=== PATIENT | male | born 1970 | race Caucasian/White ===

== ENCOUNTER 2019-08-14 10:51 | Inpatient (IN) ==
--- NOTE | 2019-08-08 09:40 | Anesthesiology Consultation ---
Date of Service August 08, 2019 Assessment & Plan Chart Review Chart Review: Acceptable Risk for Surgery, Pending: Refer to Additional Notes / Consult section (PAT testing) and Patient seen in Pre Admission Testing Consults Requested none ASA ASA2 Proposed Anesthesia Anesthesia Type: General History Surgery Operation Date: 08/14/19 07:45 Proposed Procedures p L3-S1 Decompression and Fusion with Spinal Cord Monitoring - Sid Anand, DO Height/Weight Height: 5 ft 7 in Weight: 100.2 kg Allergies Allergy/AdvReac Type Severity Reaction Status Date / Time No Known Allergies Allergy Verified 08/01/19 11:01 Medications Home Medications Medication Instructions Recorded Confirmed Last Taken cyclobenzaprine 10 mg PO TID 08/01/19 08/01/19 Unknown gabapentin 600 mg PO TID 08/01/19 08/01/19 Unknown ketorolac 10 mg PO TID PRN 08/01/19 08/01/19 Unknown losartan 25 mg PO QAM 08/01/19 08/01/19 Unknown oxycodone-acetaminophen 1 tab PO Q6H PRN 08/01/19 08/01/19 Unknown pantoprazole 40 mg PO QAM 08/01/19 08/01/19 Unknown Past Medical History Medical History Bulging disc LUMBAR Hypertension Radiculopathy of leg Exercise / Class Metabolic Activity III < 4 Walking/Shop/Light housework Past Family History Family History Mother Family history of diabetes mellitus Past Surgical History Surgical History History of discectomy LUMBAR History of endoscopic sinus surgery POLYP REMOVED [place] teeth extracted Past Anesthesia History No Hx of Anesthesia Complications and No Family Hx of Anesthesia Complications History of PONV No Hx of PONV and No Hx of Motion Sickness Social History Smoking Status: Never smoker Do You Dip or Chew Tobacco: No Hx Alcohol Use: Yes Alcohol type: beer alcohol intake frequency: holidays/special occasions only Hx Substance Use: No substance use type: does not use Physical Exam Vital Signs Last Vital Signs Temp 36.7 C 08/08/19 09:27 Pulse 85 08/08/19 09:27 Resp 18 08/08/19 09:27 BP 137/89 09/20/19 09:27 Pulse Ox 97 08/08/19 09:27 Constitutional + obese ENMT Mouth: no dentition abnormality Thyromental Distance: > or= 3.5 Finger Breadths Mallampati Class: II Neck normal visual inspection and trachea midline; neck extension not limited Respiratory normal respiratory effort Auscultation: lungs clear to auscultation bilaterally Cardiovascular Rate/Rhythm: regular rate and regular rhythm Heart Sounds: no murmur Vessels: no carotid bruit Musculoskeletal Spine: normal cervical ROM Neurologic moves all extremities Motor/Sensory: + sensory deficit (left leg radiculopathy > right leg) Psychiatric Orientation: alert and oriented x 3 Testing Electrocardiogram Date: 07/15/19 Findings: + SB @ (at 57;? IVCD)
--- NOTE | 2019-08-08 10:10 | XRay Report ---
XR chest Pre-admission PA/Lat CLINICAL HISTORY: PAT COMPARISON STUDY: 01/14/2007 FINDINGS: The bones soft tissues and hemidiaphragms are normal. The cardiomediastinal silhouette is n ormal. The lungs are clear. The pulmonary vasculature is normal. IMPRESSION: Negative chest. The above report was generated using voice recognition software. It may contain grammatical, syntax or spelling errors. Electronically signed by: Stone Treviño M.D. 08/08/2019 10:09 AM
[2019-08-08 11:38] LABS: Basophils # (auto) 0.02 K/uL (0-0.2); Basophils % (auto) 0.3 %; Eosinophils # (auto) 0.16 K/uL (0-0.5); Eosinophils % (auto) 2.3 %; Hematocrit (blood only) 44.1 % (42-52); Hemoglobin 15.2 g/dL (14.0-18.0); Immature Granulocytes # (auto) 0.02 K/uL (0.00-0.02); Immature Granulocytes % (auto) 0.3 %; Lymphocytes # (auto) 2.45 K/uL (1.2-3.4); Lymphocytes % (auto) 35.1 %; Mean Corpuscular Hemoglobin 31.7 pg (25-34); Mean Corpuscular Hgb Conc 34.5 g/dL (32-36); Mean Corpuscular Volume 91.9 fL (80-100); Monocytes # (auto) 0.74 K/uL (0.11-0.59); Monocytes % (auto) 10.6 %; Neutrophils # (auto) 3.59 K/uL (1.4-6.5); Neutrophils % (auto) 51.4 %; Platelet Count 214 K/uL (130-400); RDW Coefficient of Variation 13.3 % (11.5-14.5); RDW Standard Deviation 44.6 fL (36.4-46.3); White Blood Count 6.98 K/uL (4.8-10.8)
[2019-08-08 11:40] LABS: Appearance Urine Clear (Clear); Bilirubin Urine Negative (Negative); Blood Urine Negative (Negative); Color Urine Yellow; Glucose Urine UA Negative (Negative); Ketones Urine Negative (Negative); Leukocyte Esterase Urine Negative (Negative); Nitrite Urine Negative (Negative); Protein Urine Negative (Negative); Specific Gravity Urine 1.024 (1.000-1.030); Urobilinogen Urine Negative (Negative)
[2019-08-08 11:44] LABS: BUN Creatinine Ratio 20.1 (10-20); Calcium 9.1 mg/dl (8.5-10.1); Creatinine Clr Calc Pharmacy 107.3 ml/min; Est GFR (African American) 108.7; Est GFR (Non-African American) 93.8; Potassium 4.1 mmol/L (3.5-5.1)
[2019-08-08 11:52] LABS: INR 0.9 (0.9-1.1); Partial Thromboplastin Time 26.7 Seconds (21.0-31.0); Prothrombin Time 9.7 Seconds (9.0-12.0)
[~2019-08-14 10:51] MED LIST: ACETAMINOPHEN 500 MG TAB PO SCH; CEFAZOLIN 2000MG 2,000 MG/15 ML SYR IV SCH; CeleBREX 200 MG CAP PO SCH; GABAPENTIN 900 MG DOSE PO SCH; HYDROmorphone INJ 2 MG/ML SYR/VIAL ONE; LR 15ML/HR IV SCH; MIDAZOLAM HCL 1 MG/ML 2ML VIAL ONE; SODIUM CHLORIDE 0.9% 250 ML IV PRN; fentaNYL citrate 100 MCG/2 ML VIAL ONE
[2019-08-14] MEDS ORDERED: MEPERIDINE HCL 25 MG/ML CARP IV PRN (11:11)
[2019-08-14] MEDS ORDERED: ePHEDrine sulfate 50 MG/ML AMP IV PRN (11:11)
[2019-08-14] MEDS ORDERED: LABETALOL HCL IV 5 MG/ML 20ML IV PRN (11:11)
[2019-08-14] MEDS ORDERED: ATROPINE SULFATE 0.1 MG/ML 10ML SYR IV PRN (11:11)
[2019-08-14] MEDS ORDERED: PHENYLEPHRINE 100MCG/ML 5ML SYR IV PRN (11:11)
[2019-08-14] MEDS ORDERED: ONDANSETRON INJ 2 MG/ML 2 ML VIAL IV PRN ×2 (11:11→16:23)
[2019-08-14] MEDS ORDERED: HYDROmorphone INJ 1 MG/ML SYRINGE IV PRN (11:11)
--- NOTE | 2019-08-14 11:28 | History & Physical Bridge Note ---
Date of Service August 14, 2019 History & Physical Bridge Note I have examined the patient, reviewed the History & Physical and in the interval since the performance of the History & Physical I have noted the following changes of clinical significance: no changes noted
--- NOTE | 2019-08-14 11:31 | History & Physical Report ---
Date of Service August 14, 2019 Assessment & Plan (1) Spinal stenosis, lumbar region with neurogenic claudication: Decompression and fusion L3-S1 Present on Admission?: Yes History of Present Illness Chief Complaint: Back and leg pain Primary Care Provider: Bob Melgoza This is a 48-year-old male who presents with worsening back and leg pain. After failing extensive course of nonoperative care is here for surgical intervention. Allergies Allergy/AdvReac Type Severity Reaction Status Date / Time No Known Allergies Allergy Verified 08/14/19 11:15 Home Medications Home Medications Medication Instructions Recorded Confirmed Type cyclobenzaprine 10 mg PO TID 08/01/19 08/14/19 History gabapentin 600 mg PO TID 08/01/19 08/14/19 History ketorolac 10 mg PO TID PRN 08/01/19 08/14/19 History losartan 25 mg PO QAM 08/01/19 08/14/19 History oxycodone-acetaminophen 1 tab PO Q6H PRN 08/01/19 08/14/19 History pantoprazole 40 mg PO QAM 08/01/19 08/14/19 History Past Med/Surg History Surgical History History of discectomy LUMBAR History of endoscopic sinus surgery POLYP REMOVED [place] teeth extracted Family History Mother Family history of diabetes mellitus Social History Preferred Language: Israeli Communication Ability: Effective Restaurant Area Manager Required: No Beliefs That Will Affect Care: None Current Living Situation: Significant Other Other Information That Helps Us Care for You: No Feels Safe at Home: Yes Safety Concerns: Feels Safe At This Time Smoking Status: Never smoker Do You Dip or Chew Tobacco: No ; Second Hand Exposure: No ; Tobacco Cessation Education Requested by Patient: No Hx Alcohol Use: Yes Alcohol type: beer Hx Substance Use: No Physical Exam Physical Exam: Patient is alert and oriented neurologically intact. Results & Data Vital Signs (Past 12 Hours) Vital Signs Temp Pulse Resp BP Pulse Ox 08/14/19 11:18 36.9 C 97 H 18 140/103 H 93
[2019-08-14] MEDS ORDERED: BUPIVACAINE/EPINEPHRINE 0.5% MPF 1:200,000 30 ML VIAL ONE (11:37)
[2019-08-14] MEDS ORDERED: BACITRACIN INJ 50,000 UNIT VIAL ONE (11:38)
[2019-08-14] MEDS ORDERED: fentaNYL citrate 100 MCG/2 ML VIAL ONE ×4 (12:05→13:54)
[2019-08-14] MEDS ORDERED: FLOSEAL HEMOSTATIC MATRIX 10ML TOP ONE (12:26)
[2019-08-14] MEDS ORDERED: NEOSTIGMINE METHYLSULFATE 1 MG/ML 10ML VIAL ONE (12:39)
[2019-08-14] MEDS ORDERED: ROCURONIUM BROMIDE 10 MG/ML 5 ML VIAL ONE (12:39)
[2019-08-14] MEDS ORDERED: ONDANSETRON INJ 2 MG/ML 2 ML VIAL ONE (12:39)
[2019-08-14] MEDS ORDERED: METOPROLOL TARTRATE 1 MG/ML VIAL IV ONE (12:39)
[2019-08-14] MEDS ORDERED: DEXAMETHASONE SOD INJ 4 MG/ML VIAL ONE (12:39)
[2019-08-14] MEDS ORDERED: PROPOFOL IV EMULSION 10 MG/ML 20 ML VIAL IV ONE (12:39)
[2019-08-14] MEDS ORDERED: PHENYLEPHRINE HCL 10 MG/ML VIAL ONE (12:39)
[2019-08-14] MEDS ORDERED: GLYCOPYRROLATE 0.2 MG/ML VIAL ONE (12:39)
[2019-08-14] MEDS ORDERED: ESMOLOL HCL INJ 10 MG/ML 10ML VIAL IV ONE (12:39)
[2019-08-14] MEDS ORDERED: PHENYLEPHRINE 100MCG/ML 5ML SYR ONE (12:39)
[2019-08-14] MEDS ORDERED: LIDOCAINE HCL 2% 2 ML VIAL/AMP(20MG/ML) INFIL ONE (12:39)
[2019-08-14] MEDS ORDERED: HYDROmorphone INJ 2 MG/ML SYR/VIAL ONE (14:03)
--- NOTE | 2019-08-14 14:52 | Operative Report ---
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 Post-Op Diagnosis: Same Procedure Operation Date: 08/14/19 12:45 Actual Procedures #1 revision decompression with bilateral medial facetectomies foraminotomies L3- 4 L4-5 L5-S1. #2 posterior spinal fusion L3-4 L4-5 L5-S1. #3 placed posterior segmental instrumentation L3-4 L4-5 L5-S1. #4 interbody fusion L3-4 L4-5 L5-S1. #5 placement of titanium cage 10 x 26 mm at L3 410 x 26 mm at L4-5 and 11 x 26 mm at L5-S1. #6 placement of local autograft in the posterior lateral gutters per #7 placement infuse collagen sponge, master graft in the posterior lateral gutters and ostial amp and interbody space. Surgeon Sid Anand, DO Tableau Architect Heidi Doe Estimated Blood Loss 350 Findings See Below The patient is 5 foot 7 inches tall weighing over 100 kg with a BMI in excess of 34. The patient's significant body habitus combined with the extent of surgery and the management of scar from his previous procedure added at least 50% increase in operative time. Specimens None Indications This is a 48-year-old male who presents with above-mentioned diagnosis after failing extensive course of nonoperative care elected to undergo the above- mentioned procedure. Description of Procedure Patient was met with identified and informed consent obtained. Patient was then taken to the operative suite underwent intubation placed in a prone position the Bruce table on top of the Ford frame. All bony prominences well-padded eyes inspected to ensure no external pressure placed upon the peer at this point the lumbar spine was prepped and draped in normal sterile fashion. Sharp dissection with the assistance of Bovie cautery was performed down to and exposing the remaining lamina and transverse processes of L3-L4-L5 and the sacral ala bilaterally. Obvious bilateral pars defect was appreciated L3. Then performed a revision complete laminectomy of L5 L4 and L3 from a caudal cephalad fashion addressing severe lateral recess and foraminal stenosis bilaterally. Pedicle screws were then placed in L3-L4-L5 and S1 levels bilaterally with assistance of fluoroscopy the purposes christiano placed. By way of a transforaminal approach on the left complete discectomy of L5-S1 was performed endplates curetted to subcortical being bone and a 11 x 26 mm titanium cage filled with osteo-amp bone graft tapped in position. Then proceeded to L4-[address] of a transforaminal approach on the left complete discectomy performed endplates curetted to subcortical bleeding bone and a 10 x 26 mm titanium cage filled with ostium bone graft tapped in position. Lastly I proceeded to L3-4 level with spondylolisthesis and again by way of a transforaminal approach and left complete discectomy performed in the endplates curetted to subcortical bleeding bone. A 10 x 26 mm titanium cage filled with ostium bone graft was then tapped in position. The rods were then locked in final position bilaterally. The transverse processes of L3-L4-L5 and sacral ala bur to subcortical bleeding bone. Infuse collagen sponge master graft and local autograft placed in the posterior lateral gutters. 15 round MICHAEL drain inserted. Incision was then closed with 1 Vicryl in the fascia 2-0 Vicryl subcutaneously and 4 Monocryl for final skin closure. Steri-Strip sterile dressings placed. Patient will continue PACU stable condition. Please note Heidi Doe present at the entire procedure involved in patient positioning complex portions of the surgery and final skin closure. Lastly spinal cord monitoring was utilized that the procedure and no changes noted. I attest to the content of the Intraoperative Record and any orders documented therein. Any exceptions are noted below.
--- NOTE | 2019-08-14 14:55 | Fluoroscopy Report ---
INTRAOPERATIVE RADIOGRAPHS CLINICAL HISTORY: L3-S1 spinal fusion. Fluoroscopy time: 26 seconds. FINDINGS: 2 spot fluoroscopic views of the lumbar spine are presented. There has been discectomy at L 3-L4, L4-L5, and L5-S1 with laminectomy and posterior fusion from L3 -S1. Interpedicular screws are p resent at all levels. The orthopedic hardware appears intact. IMPRESSION: Intraoperative images from L3-S1 spinal fusion as above. Electronically signed by: Pierce Prabhakar M.D. 08/14/2019 2:53 PM
[2019-08-14] MEDS: fentaNYL citrate 100 MCG/2 ML VIAL IV PRN ×4 (15:29→15:44)
--- NOTE | 2019-08-14 15:57 | Anesthesiology Progress Note ---
Date of Service August 14, 2019 Anesthesia Post Procedure Vital Signs Vital Signs: Temp Pulse Pulse Resp BP Pulse Ox 08/14/19 15:45 98 H 16 137/81 97 08/14/19 15:35 75 14 136/74 95 08/14/19 15:25 101 H 14 155/77 H 97 08/14/19 15:15 90 16 142/80 H 95 08/14/19 15:09 36.5 C 82 14 124/74 94 08/14/19 11:18 36.9 C 97 H 18 140/103 H 93 Pain Intensity Left Leg: Pain Intensity: 6 Transfer of Care Handoff Completed per policy Notes Mental Status: alert / awake / arousable Patient Amnestic to Procedure: Yes Nausea / Vomiting: adequately controlled Pain: adequately controlled Airway Patency, RR, SpO2: stable & adequate BP & HR: stable & adequate Hydration State: stable & adequate Anesthetic Complications: no major complications apparent
[2019-08-14] MEDS ORDERED: DO NOT ADMINISTER PNEUMOCOCCAL VACCINE PRN (16:23)
[2019-08-14] MEDS ORDERED: PROMETHAZINE HCL 12.5 MG in SODIUM CHLORIDE 0.9% 50 ML IV PRN (16:23)
[2019-08-14] MEDS ORDERED: LORazepam 0.5 MG TAB PO PRN (16:23)
[2019-08-14] MEDS ORDERED: ALUMINUM/MAGNESIUM SUSP 30 ML UDC PO PRN (16:23)
[2019-08-14] MEDS ORDERED: LORazepam 0.5 MG/1 ML VIAL IV PRN (16:23)
[2019-08-14] MEDS ORDERED: ONDANSETRON 4 MG TAB PO PRN (16:23)
[2019-08-14] MEDS ORDERED: HYDROmorphone INJ 0.5 MG/0.5 ML SYR IV PRN (16:23)
[2019-08-14] MEDS ORDERED: FAMOTIDINE 20 MG TAB PO PRN (16:23)
[2019-08-14] MEDS ORDERED: SOD PHOSPHATE/SOD BIPHOSPHATE ENEMA 132 ML BTL PR PRN (16:23)
[2019-08-14] MEDS ORDERED: ACETAMINOPHEN 1,000 MG/100 ML VIAL IV PRN (16:23)
[2019-08-14] MEDS ORDERED: METOCLOPRAMIDE HCL INJ 5 MG/ML 2 ML VIAL IV PRN (16:23)
[2019-08-14] MEDS ORDERED: bisacodyL 10 MG SUPP PR PRN (16:23)
[2019-08-14] MEDS ORDERED: NALOXONE HCL 0.4 MG/1 ML VIAL/CARP IV PRN (16:23)
[2019-08-14] MEDS ORDERED: MAGNESIUM HYDROXIDE SUSP 30 ML UDC PO PRN (16:23)
[2019-08-14] MEDS ORDERED: ACETAMINOPHEN 500 MG TAB PO PRN (16:23)
[2019-08-14] MEDS ORDERED: DO NOT ADMINISTER FLU VACCINE PRN (16:23)
[2019-08-14] MEDS: LACTATED RINGER'S 1,000 ML IV SCH (17:45)
[2019-08-14] MEDS: KETOROLAC 30 MG/ML VIAL IV SCH (17:47)
[2019-08-14] MEDS: OXYCODONE HCL IR 5 MG TAB (IMMEDIATE RELEASE) PO PRN (17:53)
[2019-08-14] MEDS: CEFAZOLIN 2000MG 2,000 MG/15 ML SYR IV SCH (20:47)
[2019-08-14] MEDS: HYDROmorphone INJ 0.5 MG/0.5 ML SYR IV PRN (21:00)
[2019-08-14] MEDS: GABAPENTIN 600 MG TAB PO SCH (21:12)
[2019-08-14] MEDS: DOCUSATE SODIUM/SENNA 50/8.6MG TAB PO SCH (21:12)
[2019-08-15] MEDS: LACTATED RINGER'S 1,000 ML IV SCH ×2 (00:17→06:45)
[2019-08-15] MEDS: KETOROLAC 30 MG/ML VIAL IV SCH ×3 (00:19→11:56)
[2019-08-15] MEDS: OXYCODONE HCL IR 5 MG TAB (IMMEDIATE RELEASE) PO PRN ×4 (04:12→18:54)
[2019-08-15] MEDS: CEFAZOLIN 2000MG 2,000 MG/15 ML SYR IV SCH (04:42)
[2019-08-15 06:02] LABS: Hematocrit (blood only) 35.9 % (42-52); Hemoglobin 12.3 g/dL (14.0-18.0); Immature Granulocytes # (auto) 0.06 K/uL (0.00-0.02); Immature Granulocytes % (auto) 0.5 %; Lymphocytes # (auto) 1.48 K/uL (1.2-3.4); Lymphocytes % (auto) 11.3 %; Mean Corpuscular Hgb Conc 34.3 g/dL (32-36); Mean Corpuscular Volume 90.4 fL (80-100); Monocytes # (auto) 1.07 K/uL (0.11-0.59); Monocytes % (auto) 8.2 %; Neutrophils # (auto) 10.47 K/uL (1.4-6.5); Platelet Count 167 K/uL (130-400); RDW Coefficient of Variation 13.2 % (11.5-14.5); RDW Standard Deviation 43.5 fL (36.4-46.3); Red Blood Count 3.97 M/uL (4.7-6.1); White Blood Count 13.08 K/uL (4.8-10.8)
[2019-08-15 06:31] LABS: BUN Creatinine Ratio 12.2 (10-20); Calcium 8.5 mg/dl (8.5-10.1); Est GFR (African American) 104.7; Est GFR (Non-African American) 90.3; Potassium 3.9 mmol/L (3.5-5.1)
[2019-08-15] MEDS: POLYETHYLENE (MIRALAX) 17 GM PACK PO SCH ×3 (06:44→17:27)
--- NOTE | 2019-08-15 07:45 | Anesthesiology Progress Note ---
Date of Service August 15, 2019 Anesthesia Post Procedure Vital Signs Vital Signs: Temp Pulse Pulse Pulse Resp BP Pulse Ox 08/15/19 07:25 36.6 C 76 16 133/78 96 08/15/19 02:59 36.5 C 99 H 14 120/74 95 08/14/19 23:36 36.5 C 97 H 14 120/74 94 08/14/19 18:53 36.4 C L 102 H 16 133/85 93 08/14/19 18:12 36.4 C L 101 H 16 136/84 93 08/14/19 17:12 36.5 C 93 H 16 132/83 92 08/14/19 16:40 36.8 C 96 H 18 139/89 94 08/14/19 16:10 36.7 C 96 H 14 144/82 H 92 08/14/19 15:55 36.9 C 97 H 17 121/90 97 08/14/19 15:45 98 H 16 137/81 97 08/14/19 15:35 75 14 136/74 95 08/14/19 15:25 101 H 14 155/77 H 97 08/14/19 15:15 90 16 142/80 H 95 08/14/19 15:09 36.5 C 82 14 124/74 94 08/14/19 11:18 36.9 C 97 H 18 140/103 H 93 Pain Intensity Left Leg: Pain Intensity: 9 Lower Back: Pain Intensity: 0 Notes Mental Status: alert / awake / arousable and participated in evaluation Patient Amnestic to Procedure: Yes Nausea / Vomiting: adequately controlled Pain: adequately controlled Airway Patency, RR, SpO2: stable & adequate BP & HR: stable & adequate Hydration State: stable & adequate Anesthetic Complications: no major complications apparent and Pt Satisfied with anesthetic care
[2019-08-15] MEDS: PANTOprazole 40 MG TAB PO SCH (08:32)
[2019-08-15] MEDS: LOSARTAN POTASSIUM 25 MG TAB PO SCH (08:32)
[2019-08-15] MEDS: GABAPENTIN 600 MG TAB PO SCH ×3 (08:32→20:11)
[2019-08-15] MEDS: TRAMADOL HCL 50 MG TABLET PO PRN ×2 (15:33→20:14)
--- NOTE | 2019-08-15 16:01 | Orthopedic Progress Note ---
Date of Service August 15, 2019 Assessment & Plan (1) Spinal stenosis, lumbar region with neurogenic claudication: This time we will continue physical therapy monitor MICHAEL output anticipate discharge home later half this weekend. Present on Admission?: Yes Subjective Patient's back pain is controlled leg symptoms improved. Physical Exam Physical Exam: Patient is in the chair at the bedside. Is good strength testing. Appears comfortable. Results & Data Vital Signs (Past 12 Hours) Vital Signs Temp Pulse Resp BP Pulse Ox 08/15/19 15:14 36.7 C 99 H 17 150/96 H 94 08/15/19 11:31 93 08/15/19 11:24 36.8 C 88 16 133/84 93 08/15/19 08:34 135/83 08/15/19 07:25 36.6 C 76 16 133/78 96
[2019-08-15] MEDS: DOCUSATE SODIUM/SENNA 50/8.6MG TAB PO SCH (20:11)
[2019-08-15] MEDS: HYDROmorphone INJ 0.5 MG/0.5 ML SYR IV PRN (20:55)
[2019-08-16] MEDS: POLYETHYLENE (MIRALAX) 17 GM PACK PO SCH ×5 (00:58→23:33)
[2019-08-16] MEDS: GABAPENTIN 600 MG TAB PO SCH ×3 (07:34→20:21)
[2019-08-16] MEDS: PANTOprazole 40 MG TAB PO SCH (07:34)
[2019-08-16] MEDS: LOSARTAN POTASSIUM 25 MG TAB PO SCH (07:34)
--- NOTE | 2019-08-16 08:59 | Orthopedic Progress Note ---
Date of Service August 16, 2019 Assessment & Plan (1) Spinal stenosis, lumbar region with neurogenic claudication: I will work on aggressive bowel regimen today. Maintain MICHAEL drain. Continue with physical therapy and ambulation. Anticipate discharge home within next 24 to 48 hours. Supervising Physician Co-Signing Physician Notes Dr. Sid Anand Subjective Patient is having some right foot pain intermittently and randomly. Majority of his pain he had preoperatively is greatly improved. He is having some abdominal discomfort. Passing modest flatus. MICHAEL drain output last shift was 85 cc. History and physical therapy ambling roughly 325 feet. No other complaints. Review of Systems Review of Systems: All systems reviewed & are unremarkable except as noted in HPI & below Physical Exam Physical Exam: Alert and oriented x3. Moderately uncomfortable. Lower extremity's are neurovascular intact. Calf soft nontender bilaterally. Lumbar dressing is clean dry and intact with MICHAEL drain intact. Results & Data Vital Signs (Past 12 Hours) Vital Signs Temp Pulse Resp BP Pulse Ox 08/16/19 06:39 36.5 C 120 H 16 128/76 92 08/15/19 23:00 36.4 C L 108 H 16 143/90 H 92
[2019-08-16] MEDS: OXYCODONE HCL IR 5 MG TAB (IMMEDIATE RELEASE) PO PRN ×2 (17:36→22:17)
[2019-08-16] MEDS: DOCUSATE SODIUM/SENNA 50/8.6MG TAB PO SCH (20:21)
[2019-08-17] MEDS: OXYCODONE HCL IR 5 MG TAB (IMMEDIATE RELEASE) PO PRN ×2 (03:34→07:42)
[2019-08-17] MEDS: POLYETHYLENE (MIRALAX) 17 GM PACK PO SCH (05:05)
[2019-08-17] MEDS: LOSARTAN POTASSIUM 25 MG TAB PO SCH (07:42)
[2019-08-17] MEDS: GABAPENTIN 600 MG TAB PO SCH (07:42)
[2019-08-17] MEDS: PANTOprazole 40 MG TAB PO SCH (07:42)
--- NOTE | 2019-08-17 08:14 | Orthopedic Progress Note ---
Date of Service August 17, 2019 Assessment & Plan (1) Spinal stenosis, lumbar region with neurogenic claudication: We are going to discharge him home today. We will DC MICHAEL drain and dressing prior to discharge. Restrictions have been reviewed in detail. He will follow-up in our office in 2 weeks. Supervising Physician Co-Signing Physician Notes Dr. Sid Anand Subjective Patient still has intermittent right leg pain. It is controlled. Yesterday physical therapy ambling 325 feet. He had a bowel movement. MICHAEL drain output last shift was 70 cc. Is anxious to return home. Review of Systems Review of Systems: All systems reviewed & are unremarkable except as noted in HPI & below Physical Exam Physical Exam: He is in no acute distress. Lying in bed. Strength is intact bilateral lower extremities. Calves are soft nontender. Lumbar dressing is clean dry and intact. Results & Data Vital Signs (Past 12 Hours) Vital Signs Temp Pulse Resp BP BP Pulse Ox 08/17/19 07:40 37.1 C 96 H 17 138/79 92 08/16/19 23:28 36.7 C 104 H 14 125/80 90
--- NOTE | 2019-08-17 08:16 | Discharge Summary ---
Date of Service August 17, 2019 Admission HPI Per Admitting Provider This is a 48-year-old male who presents with worsening back and leg pain. After failing extensive course of nonoperative care is here for surgical intervention. Admission Exam (Per Admitting) Constitutional WD/WN, vitals as above well developed Eyes normal visual cunningham by confrontation ENMT external ear and nose normal, oropharynx normal Neck normal visual inspection Respiratory normal respiratory effort Cardiovascular Vessels: normal peripheral pulses Extremities: normal capillary refill Chest (Breasts) Chest: normal inspection of chest Gastrointestinal (Abdomen) Inspection/Auscultation: abdomen normal to inspection and normal bowel sounds Musculoskeletal no cyanosis or clubbing, extremities motor strength 5/5 Skin no rashes, warm and dry Neurologic patellar DTR's 2+ bilat, sensation intact normal touch/pain/proprioception, deep tendon reflexes 2+ bilaterally and moves all extremities Psychiatric A+Ox3, euthymic affect Discharge Data Consultations 08/14/19 16:23 Consult Case Management - Discharge Planning Routine Procedures Performed Operation Date: 08/14/19 12:45 Actual Procedures p L3-S1 Decompression and Fusion, Interbody Cages L3-L4, L4-L5-L5-S1 with Spinal Cord Monitoring - Sid Anand DO Hospital Course (1) Spinal stenosis, lumbar region with neurogenic claudication: Patient has had an uncomplicated hospital course status post multilevel lumbar decompression fusion. He has made progress in physical therapy daily. Pain is controlled. He had a bowel movement prior to discharge. Lab values have been stable. He is discharged home on postoperative day 3. Discharge Instructions ACTIVITY RECOMMENDATIONS: SELF CARE INSTRUCTIONS AFTER THORACIC/LUMBAR FUSIONS 1. You may walk to your tolerance. It is good exercise for your legs and back. Expect some back and intermittent leg aches and pains. 2. You may perform "counter-top" level activities (make a sandwich, ananth with a project, etc.). 3. No bending or lifting of more than 10 pounds or back twisting of any nature (roll like a log when turning in bed). 4. You may ride in a car for 20-30 minutes at a time. No driving until after your first visit with your doctor. 5. Frequent changes of position and restricting sitting to 30 minutes at a time will help limit the amount of back spasms and stiffness you may experience. 6. You may discontinue the use of ambulatory aids (cane, crutches, etc.) once your strength and confidence allow. 7. You may nursing instructor the shower and let water strike your incision when you arrive home at least once daily. Do not take a tub bath, sit in a hot tub or go into a swimming pool until after your first recheck in the office. SPECIAL CARE INSTRUCTIONS: VERY IMPORTANT TO READ AND REVIEW A. Your surgical incision has been closed with a cosmetic suture under the skin that will dissolve in about 6 weeks. In 14 days, you can use a pair of clean scissors and cut the suture that is left outside of the skin at the ends of your incision. 1. The small skin tapes can be removed 7 days after surgery if they have not fallen off by that point. 2. You may keep the wound open to air as much as possible to promote healing after post-op day number 5 unless told otherwise by your doctor. 3. If you think the wound looks like it is becoming infected (redness or worsening drainage) and/or you are experiencing fever, chill or worsening back pain and muscle spasms, contact the office so that we may evaluate you as soon as possible. B. Complications are uncommon, but please contact us if you have any signs or symptoms of: 1. wound infection (fever higher than 102.5 degrees F, redness, separation of wound, drainage, or increasing pain from the incision) 2. blood clots in legs (pain, swelling, redness and warmth in legs) 3. urinary tract infection (fever higher than 102.5 degrees F, burning upon urination or increased frequency of urination) 4. nerve problems (inability to walk on your toes or heels, numbness, loss of bowel or bladder control) 5. any other symptoms that concern you C. Please call the office at if you have any concerns or questions about your operation or recovery. D. No smoking! Smoking drastically decreases the chance of a solid fusion. E. Do not take any anti-inflammatory medications (Indocin, Advil, Motrin, Aspirin, Naprosyn, etc.) as these may inhibit the chance of a solid fusion. Tylenol is okay to take for pain. MANAGING PAIN AFTER SPINAL SURGERY 1. Narcotic medication is intended for short-term use and will be provided for surgical pain. Surgical pain usually lasts for a period of 4-6 weeks. Narcotic medication includes Percocet, Vicodin, Darvocet, Tylenol #3 or Lortab. 2. Longer-term pain is more appropriately treated with non-narcotic medication such as Tylenol ES. 3. Muscle spasm is not appropriately treated with narcotics. Muscle relaxers such as Soma, Flexeril or Skelaxin can be used along with Tylenol ES. 4. Remember that we all live with some "aches and pains". This is not unusual or uncommon after an injury or as we get older. a. Back pain is expected and may include muscle spasms for 4 to 6 weeks after surgery. The pain should gradually improve. If the pain worsens for no apparent reason, please contact the office. b. Intermittent leg pain may also be experienced and should not be concerned about unless it worsens for no apparent reason. If so, please contact the office. 5. We will provide appropriate medication within the normal guidelines of their prescribed use. We will also be very cautious and aware of potential abuse and extended duration of patients' medication needs. a. Pain medications are for your comfort and to assist with sleep and rest so that the tissue can heal. They are not provided in order to return to normal activity and should not be used through the day. To do so or worsening pain at night can result from ongoing tissue damage and development of tolerance to the prescribed medicine. 6. Please allow 2-3 days to process refills. Prescriptions will not be mailed but must be picked up at the office. FOLLOW UP VISIT: Keep your scheduled follow-up appointment. Any questions, please call the office at . Supervising Physician Co-Signing Physician Notes Dr. Sid Anand
== END 2019-08-17 10:09 | disposition home or self-care (01) | DRG 455 ==
LOC: ASU 10:51 → 3E 14:55